=== PATIENT | male | born 1970 | race American Indian/Alaskan Native ===

== ENCOUNTER 2020-02-18 20:03 | Emergency (ER) | payer OTHER ==
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
[2020-02-18 21:07] VITALS: BP 127/78
[2020-02-18] MEDS ORDERED: oxyCODONE /ACETAMINOPHEN 5-325MG TAB PO ONE (22:49)
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
[2020-02-18] MEDS ORDERED: oxyCODONE /ACETAMINOPHEN 5-325MG TAB ONE (23:16)
--- NOTE | 2020-02-18 23:19 | XRay Report ---
LEFT WRIST 4 VIEW(S) INDICATION / CLINICAL INFORMATION: left wrist pain COMPARISON: None available. FINDINGS: BONES / JOINT(S): Minimally displaced fracture through the metaphysis of the distal radius. No involv ement of the joint space. Carpal arcs are intact. No significant arthritis. SOFT TISSUES: Soft tissue swelling surrounds fracture site. ADDITIONAL FINDINGS: None. Signer Name: Dev Mayo MD Signed: 02/18/2020 10:46 PM Workstation Name: [id number]
== END 2020-02-18 23:30 | disposition home or self-care (01) ==
LOC: ED 20:03
DX: S52.502A Unspecified fracture of the lower end of left radius, initial encounter for closed fracture (principal); Z79.899 Other long term (current) drug therapy; V49.69XA Unspecified car occupant injured in collision with other motor vehicles in traffic accident, initial encounter; Y93.89 Activity, other specified; Y92.488 Other paved roadways as the place of occurrence of the external cause; Y99.8 Other external cause status
CPT/HCPCS: 99283